=== PATIENT | female | born 1980 | race Caucasian/White ===

== ENCOUNTER 2019-01-13 01:24 | Outpatient (CLI) | payer MEDICAID, SELFPAY ==
--- NOTE | 2019-01-13 08:31 | DI.US_ITS ---
EXAM: US ABDOMEN CLINICAL HISTORY: RUQ ABD PAIN,R10.11.,BACK PAIN TECHNIQUE: Ultrasound performed using standard protocol. COMPARISON: No exams were available for comparison FINDINGS: The aorta and vena cava are unremarkable. There is some increased echogenicity in the liver consisten t with fatty infiltration. The portal vein is normal. Gallbladder is intact. There is no evidence o f cholelithiasis or biliary obstruction. There is no evidence of a Sanchez's sign. The head and body of the pancreas are unremarkable. Tail was not visualized. Spleen is intact. Right kidney and left kidney unremarkable. There is no evidence of abdominal free fluid. IMPRESSION: Findings consistent with a fatty liver.
== END 2019-01-13 01:44 ==
PROVIDERS: PCP Nurse Practitioner Family; Visit Provider Nurse Practitioner Family
DX: R10.11 Right upper quadrant pain (principal); M54.9 Dorsalgia, unspecified; K76.0 Fatty (change of) liver, not elsewhere classified
CPT/HCPCS: 76700

== ENCOUNTER 2019-02-23 14:46 | Outpatient (REF) | payer MEDICAID, SELFPAY ==
[2019-02-23 15:16] LABS: ALT 36 U/L (14-59); AST 10 U/L (15-37); Albumin 3.9 g/dL (3.4-5.0); Alkaline Phosphatase 95 U/L (46-116); Anion Gap 9.5 mmol/L (3-11); BUN 13 mg/dL (7-18); Bilirubin, Total 0.5 mg/dL (0.2-1.0); CO2 26.5 mmol/L (21.0-32.0); CREATININE 0.64 mg/dL (0.55-1.02); Calcium 8.6 mg/dL (8.5-10.1); Calculated LDL 120 mg/dL; Chloride 106 mmol/L (98-107); Cholesterol 181 mg/dL (<200); Glucose 82 mg/dL (74-106); HDL Cholesterol 44 mg/dL (40-60); Potassium 4.1 mmol/L (3.5-5.1); Sodium 142 mmol/L (136-145); TSH (W/Ref FT4) 0.81 uIU/mL (0.36-3.74); Triglyceride 85 mg/dL (<150)
== END 2019-02-23 15:06 ==
LOC: NCHCN 14:46
PROVIDERS: PCP Nurse Practitioner Family; Visit Provider Nurse Practitioner Family
DX: E03.9 Hypothyroidism, unspecified (principal); Z00.00 Encounter for general adult medical examination without abnormal findings
CPT/HCPCS: 80053; 80061; 84443

== ENCOUNTER 2020-06-20 16:34 | Outpatient (REF) | payer MEDICAID, SELFPAY ==
--- NOTE | 2020-06-20 15:30 | PAPFT_PTH ---
PATIENT: Malena Mustafa LOC: [facility] U#:[id number] AGE/SX: 40/F ROOM: RE06/20/[address]: Lili Zhu : 1980 BED: DIS: 06/20/2020 SPEC #: [id number] RECD: 06/20/20 17:51 STATUS: ANA REElias #: [id number] CARA: 06/20/20 15:[address]: Lili Zhu DEPT: [facility] Cytology RECD BY: Jane Tidwell Tissues: 1 - CX/ENDOCX FOR PAP SMEARS Procedures: PAP THIN PREP/UVM Screening Comments: [id number]
[2020-06-20 18:25] LABS: TSH (W/Ref FT4) 1.02 uIU/mL (0.36-3.74)
== END 2020-06-20 16:35 | disposition home or self-care (01) ==
LOC: NCHCN 16:34
PROVIDERS: PCP Nurse Practitioner Family; Visit Provider Nurse Practitioner Family
DX: E03.9 Hypothyroidism, unspecified (principal); Z12.4 Encounter for screening for malignant neoplasm of cervix
CPT/HCPCS: 88142; 84443

== ENCOUNTER 2020-10-24 16:57 | Outpatient (REF) | payer MEDICAID, SELFPAY ==
[2020-10-24 21:21] LABS: HCT 43.3 % (36.0-46.0); HGB 14.4 g/dL (11.2-15.7); MCH 31.2 pg (27.0-33.0); MCHC 33.3 % (32.0-36.0); MCV 93.9 fL (80-95); MPV 10.2 fL (8.0-11.0); Platelet Count 261 10^3/uL (130-400); RBC 4.61 10^6/uL (3.93-5.22); RDW 12.1 % (11.7-14.6); RDW-SD 42.2 fL; WBC 10.62 10^3/uL (4.4-10.8)
[2020-10-24 23:21] LABS: ALT 39 U/L (14-59); AST 20 U/L (15-37); Alkaline Phosphatase 110 U/L (46-116); Anion Gap 11.2 mmol/L (3-11); BUN 18 mg/dL (7-18); Bilirubin, Total 0.3 mg/dL (0.2-1.0); CO2 23.8 mmol/L (21.0-32.0); CREATININE 0.6 mg/dL (0.55-1.02); Chloride 106 mmol/L (98-107); Glucose 104 mg/dL (74-106); Magnesium 2.1 mg/dL (1.8-2.4); Sodium 141 mmol/L (136-145); TSH (W/Ref FT4) 0.89 uIU/mL (0.36-3.74); Total Protein 7.3 g/dL (6.4-8.2); Vitamin B12 499 pg/mL (193-986)
== END 2020-10-24 16:58 | disposition home or self-care (01) ==
LOC: LBN 16:57
PROVIDERS: PCP Nurse Practitioner Family; Visit Provider Nurse Practitioner Family
DX: N92.6 Irregular menstruation, unspecified (principal)
CPT/HCPCS: 80053; 85027; 82607; 83735; 84443

== ENCOUNTER 2021-06-28 02:04 | Outpatient (CLI) | payer MEDICAID, SELFPAY ==
--- NOTE | 2021-06-28 09:30 | DI.MAMMO_ITS ---
Exam(s) US BREAST RT COMPLETE MAMMO DIAGNOSTIC BI EXAM: MAMMO DIAGNOSTIC BI and U/S breast RT complete CLINICAL HISTORY: BREAST LUMP, N63.0. TECHNIQUE: Craniocaudal and mediolateral oblique Full Field Digital Mammography views with Computer Aided Diagnosis followed by Tomosynthesis and right breast ultrasound. COMPARISON: This is a baseline examination. FINDINGS: Mammography/Tomosynthesis: Masses/Architectural Distortion: There is a spiculated lesion with architectural distortion at the 12 o'clock position of the right breast. Microcalcifictions: No suspicious pleomorphic-type are seen. Skin Thickening/Nipple Retraction: None. Complete right breast US: Echotexture: Normal appearance of the glandular tissue. Shadowing: Please see below. Cyst: There is a collection of cysts seen at the 8 o'clock position of the right breast 2 cm from the nipple. Solid lesions: There is a 2.1 x 1.5 x 2.1 cm hypoechoic spiculated mass at the 12 o'clock position of the right breast 2-3 cm from the nipple. This corresponds to the mammographic abnormality. At the 9 o'clock position of the of the right breast 2 cm from the nipple there is a hypoechoic 0.8 cm mass which appears spiculated. There is a cystic and solid area at 1 o'clock position 1 cm from the nippl e. The areolar region is unremarkable. Normal sonographically benign-appearing lymph nodes are seen in the right axilla. Ductal dilation: None. IMPRESSION: 1. Spiculated 2.1 cm hypoechoic mass at 12 o'clock 3 cm from the nipple. Spiculated hypoechoic 0.8 c m mass 2 cm from the nipple at the 9 o'clock position. 2. Findings are suspicious for carcinoma and appear multifocal. 3. Findings were discussed with the patient and the patient's primary care physician on the date of t he examination. BI-RADS Category 5 - Highly Suggestive of Malignancy: Biopsy recommended Breast Density - Category C - Heterogeneously dense Breast density Category C or D implies that the patient has dense breast tissue. Dense breast tissue can make it harder to find cancer on a mammogram. Dense breast tissue is also associated with an incr eased risk of breast cancer. This information about the result of the mammogram report was provided to the patient to raise their awareness. Use this report when you speak with the patient about their risks for breast cancer, which includes their family history. At that time, you may recommend additional screening tests (Ultrasoun d or MRI) as these tests may add significant information. A negative radiographic report should not delay biopsy if a dominant or clinically suspicious mass is present. Up to ten percent of cancers are not identified on mammography. A negative report may reinforce clinical impression. Adenosis and dense breasts may obscure an underlying neoplasm. False positive reports average 6 to 10%. Patient will receive a letter notifying them of these results.
== END 2021-06-28 02:24 ==
PROVIDERS: PCP Nurse Practitioner Family; Visit Provider Nurse Practitioner Family
DX: N63.15 Unspecified lump in the right breast, overlapping quadrants (principal); R92.8 Other abnormal and inconclusive findings on diagnostic imaging of breast
CPT/HCPCS: 76642; 77062; 77066; G0279

== ENCOUNTER 2021-08-04 19:15 | Emergency (ER) | payer MEDICAID, SELFPAY ==
[2021-08-04 19:28] VITALS: BP 157/100; PULSE 89; RESP 16; TEMP 37.3; O2SAT 95
[2021-08-04 19:37] VITALS: BP 136/90
[2021-08-04 20:11] LABS: Abs Immature Grans 0.02 10^3/uL (0.0-0.06); Absolute Basophil Count 0.01 10^3/uL (0.0-0.2); Absolute Eosinophil Count 0.04 10^3/uL (0.0-0.7); Absolute Lymphocyte Count 1.12 10^3/uL (1.2-3.4); Absolute Monocyte Count 0.61 10^3/uL (0.1-0.8); Absolute Neutrophil Count 6.19 10^3/uL (1.2-6.7); Basophils % 0.1; Eosinophils % 0.5; HCT 44.2 % (36.0-46.0); HGB 14.4 g/dL (11.2-15.7); Immature Grans % 0.3; MCH 30.1 pg (27.0-33.0); MCHC 32.6 % (32.0-36.0); MCV 92 fL (80-95); MPV 9.3 fL (8.0-11.0); Monocytes % 7.6; Neutrophils % 77.5; Platelet Count 233 10^3/uL (130-400); RBC 4.79 10^6/uL (3.93-5.22); RDW 12.1 % (11.7-14.6); RDW-SD 41.3 fL; WBC 7.99 10^3/uL (4.4-10.8)
--- NOTE | 2021-08-04 20:14 | W.ED.GENAD ---
Discharge Plan Disposition Patient Disposition: HOME Condition: Stable Discharge Details Clinical Impression: COVID Primary Care Provider: Lili Zhu ED Provider: Brent Gonzales Home Meds and New Rx's Prescriptions: Continued multivitamin [Multi-Day] 1 EACH tablet 1 ea PO DAILY 0RF Discharge Instructions Instructions: COVID-19 (Coronavirus Disease 2019) (ED) Additional Instructions: you can take over the counter medications such as ibuprofen and tylenol, follow dosing instructions on bottle/packaging if you feel more ill, have worsening shortness of breath or persistent vomit return to the emergency department Medical Decision Making 41 yo female who recently was diagnosed with breast cancer, not on chemo but is scheduled for surgery on 08/24, comes in with chief complaint of nasal congestion and chills for a day, no fever. Took an at home covid test and was positive and wasn't sure what she should take so came here. She denies dyspnea, chest pain, vomit. She arrives appearing well and speaking in full sentences. She has clear lungs, no neck stiffness, no throat pain, no abdominal pain, stable vitals, no oxygen requirement. She had the J and J vaccine and a subsequent booster after this. Discussed with pt doing monocloncal antibody or paxlovid, and since she is not on chemo and is boostered chance of severe disease is low she decided she doesn't want any therapy. Labs were ordered prior to my seeing her, do not feel she needs to wait for these, will call her if she has any significant abnormalities on lab work. Differential Diagnosis Differential Diagnosis: covid, allergies HPI General Mode of arrival: ambulatory. Date/Time Provider Initiated Documentation: 08/04/21 19:33. Limitations to Documentation: no limitations. Information obtained by: patient. History of Present Illness 41 year old F presents to the emergency department with the chief complaint of nasal congestion, described as mild, Patient started experiencing this day(s) (1) and it has been constant. improves with No relieving factors improve symptom(s), No exacerbating factors reported . Patient notes cough. Patient did receive the following treatments prior to arrival, none Related Data Home Medications Medication Instructions Recorded Confirmed multivitamin (Multi-Day) 1 ea PO DAILY 05/13/13 08/04/21 Allergies Allergy/AdvReac Type Severity Reaction Status Date / Time No Known Drug Allergies Allergy Verified 04/30/22 19:32 General Stated Complaint: RespSymp YVES: 3 Review of Systems All systems reviewed & are unremarkable except as noted in HPI and below Constitutional Constitutional: Denies fever(s) and Denies weakness ENT Ears, Nose, Mouth, and Throat: Denies change in voice Cardiovascular Cardiovascular: Denies chest pain and Denies dyspnea Respiratory Respiratory: Denies dyspnea Gastrointestinal Gastrointestinal: Denies abdominal pain, Denies nausea and Denies vomiting Genitourinary Genitourinary: Denies dysuria Musculoskeletal Musculoskeletal: Denies joint swelling Neurologic Neurologic: Denies weakness PFSH All Active Problems (Updated 08/04/21 @ 20:14 by Brent Gonzales MD) Tobacco use (Acute 03/11/17) Contraception (Acute 03/07/16) COVID (Acute) Medical History (Updated 08/04/21 @ 20:14 by Brent Gonzales MD) Breast cancer Surgical History (Updated 01/21/18 @ 14:35 by [place]) section X 1 Social History (Updated 04/09/18 @ 14:58 by Sandie Boyd NP) Smoking/Tobacco Use Status: Current-Occasional Smoking risk assessment performed?: Yes Alcohol Intake: current Alcohol Intake frequency: holidays/special occasions only Drug use: Current Sobriety Substance use type: does not use and former substance user current occupation: [employer] Do you feel safe at home: Yes Do you feel safe in your relationship?: Yes Female Reproductive History Menstrual control method: pills History History 1 Para 1 Hx # Term Pregnancies Multiple births Hx # Pregnancies Ectopic pregnancies AB induced Hx Number of Living Children AB spontaneous Exam Const General: no acute distress Orientation: alert [facility] Head: normal to inspection Ears: external ears normal General nose exam: external nose normal Mouth: moist mucous membranes Eyes General: appearance normal, both eyes and all related structures Neck Neck: normal visual inspection Resp Effort & Inspection: normal respiratory effort and able to speak in complete sentences Cardio Rate: regular rate Skin General skin exam: no rashes or lesions noted Neuro General: patient alert and patient oriented x3 Extrem General: normal to inspection Psych Mental Status: mental status grossly normal Course Vital Signs Vital signs: Vital Signs Temperature 37.3 C 08/04/21 19:28 Pulse 89 08/04/21 19:28 Respiratory Rate 16 08/04/21 19:28 Blood Pressure 157/100 H 08/04/21 19:28 Pulse Oximetry 95 08/04/21 19:28 Temperature 37.3 C 08/04/21 19:28 Temperature Source Skin 08/04/21 19:28 Pulse 89 08/04/21 19:28 Respiratory Rate 16 08/04/21 19:28 Respiratory Effort Non-Labored 08/04/21 19:33 Blood Pressure 136/90 08/04/21 19:37 Pulse Oximetry 95 08/04/21 19:28 Pain Level 6 08/04/21 19:28 Lab/Test Results Lab/Test Results: Laboratory Tests Range/Units 08/04/21 19:50 WBC (4.4-10.8) 10^3/uL 7.99 RBC (3.93-5.22) 10^6/uL 4.79 Hgb (11.2-15.7) g/dL 14.4 Hct (36.0-46.0) % 44.2 MCV (80-95) fL 92 MCH (27.0-33.0) pg 30.1 MCHC (32.0-36.0) % 32.6 RDW (11.7-14.6) % 12.1 Plt Count (130-400) 10^3/uL 233 MPV (8.0-11.0) fL 9.3 Immature Gran % 0.3 Neutrophils % 77.5 Lymphocytes % 14.0 Monocytes % 7.6 Eosinophils % 0.5 Basophils % 0.1 Nucleated RBC % (0.0-0.3) % 0.0 Absolute Neutrophils (1.2-6.7) 10^3/uL 6.19 Absolute Lymphocytes (1.2-3.4) 10^3/uL 1.12 L Absolute Monocytes (0.1-0.8) 10^3/uL 0.61 Absolute Eosinophils (0.0-0.7) 10^3/uL 0.04 Absolute Basophils (0.0-0.2) 10^3/uL 0.01
[2021-08-04 20:24] LABS: ALT 28 U/L (14-59); AST 9 U/L (15-37); Albumin 3.8 g/dL (3.4-5.0); Alkaline Phosphatase 107 U/L (46-116); Anion Gap 7.6 mmol/L (3-11); BUN 8 mg/dL (7-18); Bilirubin, Total 0.3 mg/dL (0.2-1.0); CO2 26.4 mmol/L (21.0-32.0); CREATININE 0.6 mg/dL (0.55-1.02); Calcium 8.4 mg/dL (8.5-10.1); Chloride 103 mmol/L (98-107); Glucose 98 mg/dL (74-106); Potassium 4.1 mmol/L (3.5-5.1); Sodium 137 mmol/L (136-145); Total Protein 7.5 g/dL (6.4-8.2)
[2021-08-04 20:48] LABS: Influenza A PCR Negative (Negative); Influenza B PCR Negative (Negative); RSV PCR Negative (Negative)
[2021-08-04 21:00] LABS: COVID-19 PCR Positive (Negative)
== END 2021-08-04 20:45 | disposition home or self-care (01) ==
PROVIDERS: Physician Assistant; Emergency Provider Emergency Medicine; PCP Nurse Practitioner Family
DX: U07.1 COVID-19 (principal)
CPT/HCPCS: 80053; 87637; 99282; 85025

== ENCOUNTER 2021-10-02 07:45 | Outpatient (REF) | payer MEDICAID, SELFPAY ==
[2021-10-02 09:07] LABS: HCG Qual (Urine) Negative
== END 2021-10-02 07:46 | disposition home or self-care (01) ==
LOC: LBN 07:45
PROVIDERS: PCP Nurse Practitioner Family; Visit Provider Radiology Radiation Oncology
DX: C50.111 Malignant neoplasm of central portion of right female breast (principal); Z17.0 Estrogen receptor positive status [ER+]; Z32.00 Encounter for pregnancy test, result unknown
CPT/HCPCS: 81025

== ENCOUNTER 2021-10-03 09:31 | Emergency (ER) | payer MEDICAID, SELFPAY ==
--- NOTE | 2021-10-03 09:30 | RT.EKG_ITS ---
APPROVED REPORT Exam: Resting ECG Reason for Exam: possible stroke Patient Location: E HR:87 bpm ECG Measurements Heart Rate 87 AXIS VT 144 P 30 QRSd 84 QRS 5 QT 360 T 20 QTc 433 Conclusion Sinus rhythm...normal P axis, V-rate 60- 99
[2021-10-03 09:37] VITALS: BP 149/97; PULSE 87; RESP 16; TEMP 37.1; O2SAT 99
--- NOTE | 2021-10-03 09:45 | DI.CT_ITS ---
Exam(s) CT HEAD WO EXAM: CT HEAD WO CLINICAL HISTORY: Left sided numbness. TECHNIQUE: Imaging Protocol: Axial computed tomography images with coronal and sagittal reformatted images were created and reviewed COMPARISON: No exams were available for comparison FINDINGS: The ventricular system is normal in appearance. No evidence of acute intracranial hemorrhage, mass effect, or midline shift. The orbital structures are unremarkable. The temporal bone structures appear intact. Calvarium: Normal. Visualized Paranasal sinuses/Mastoids: Mucoperiosteal thickening and possible fluid noted in right ma xillary antrum which may represent acute and/or chronic sinusitis. Otherwise paranasal sinuses and m astoid air cells are clear as visualized.. IMPRESSION: No evidence of acute intracranial process. RADIATION DOSE DELIVERED: 724.38mGy.cm Total DLP 724.38mGy.cm Total DLP !Error CTDIvol DATA REPOSITORY: All CT scans at this facility are submitted to the National Radiology Data Registry (NRDR) Dose Index Registry (DIR) with the [employer] (ACR). RADIATION OPTIMIZATION: All CT scans at this facility use at least one of these dose optimization te chniques: automated exposure control; mA and/or kV adjustment per patient size (includes targeted exa ms where dose is matched to clinical indication); or iterative reconstruction.
[2021-10-03 09:53] VITALS: RESP 16
[2021-10-03 10:23] LABS: Abs Immature Grans 0.03 10^3/uL (0.0-0.06); Absolute Basophil Count 0.01 10^3/uL (0.0-0.2); Absolute Eosinophil Count 0.12 10^3/uL (0.0-0.7); Absolute Lymphocyte Count 1.86 10^3/uL (1.2-3.4); Absolute Monocyte Count 0.49 10^3/uL (0.1-0.8); Absolute Neutrophil Count 5.97 10^3/uL (1.2-6.7); Basophils % 0.1; Eosinophils % 1.4; HCT 40.9 % (36.0-46.0); HGB 13.6 g/dL (11.2-15.7); Immature Grans % 0.4; Lymphocytes % 21.9; MCH 30.2 pg (27.0-33.0); MCHC 33.3 % (32.0-36.0); MCV 91 fL (80-95); MPV 9.4 fL (8.0-11.0); Monocytes % 5.8; Neutrophils % 70.4; Platelet Count 237 10^3/uL (130-400); RDW 12.4 % (11.7-14.6); RDW-SD 41.3 fL; WBC 8.48 10^3/uL (4.4-10.8)
--- NOTE | 2021-10-03 10:31 | W.ED.GENAD ---
Discharge Plan Disposition Patient Disposition: HOME Condition: Stable Discharge Details Clinical Impression: Paresthesia Primary Care Provider: Lili Zhu ED Provider: John Boles Home Meds and New Rx's Prescriptions: New prednisone 50 mg tablet 50 mg PO DAILY Qty: 3 0RF No Action multivitamin [Multi-Day] 1 EACH tablet 1 ea PO DAILY cholecalciferol (vitamin D3) [Vitamin D3] 10 mcg (400 unit) Capsule 400 unit PO DAILY Discharge Instructions Instructions: Paresthesia (ED) Additional Instructions: At this time there are no worrisome findings to correlate with your symptoms. We are still pending on Lyme testing and we will contact you if you need antibiotics for further treatment of this. If you have any new or significant worsening of symptoms return immediately to the emergency department for reassessment. We will attempt a short steroid burst to see if this helps with your symptoms and otherwise if not improving follow-up with your primary care provider for reassessment. Referrals: Lili Zhu [Primary Care Provider] - 1 week Discharge Data Discharge Date/Time-TO BE ENTERED AT DEPARTURE: 10/03/21 13:29 Medical Decision Making Patient presenting to the emergency department chief complaint of paresthesia to the left jaw along with bilateral legs from the calf down. Patient states symptoms started approximately 1 week ago then somewhat resolved and now have returned patient has pertinent past medical history of recent diagnosis of breast cancer with biopsy and lymph node removal approximately 2 weeks ago, did have COVID a couple weeks ago and fully recovered, does have some anxiety. Physical exam is overall unremarkable and no focal motor deficits, denies headache,. Exam is unremarkable except for perceived paresthesia but not full loss of sensation to left side of V3 only and some paresthesia to the circumferential lower legs from the calf down with reported slightly worse on left than right but again denies pain discomfort swelling and no other tenderness can be appreciated on lower extremity examination. Cardiac and respiratory exam are unremarkable. Given patient's history of breast cancer with recent surgery we will plan on checking basic labs and CT imaging. While CVA/TIA is on differential list her pattern of complaint does not fully fit the typical pattern. Other considerations are MS, brain metastasis, tickborne illness/Lyme disease. Reviewed screening labs which are unremarkable CBC, CMP showing slightly low creatinine and AST otherwise unremarkable CMP. Patient still pending urinalysis and tick panel. Reviewed CT scan with radiologist that shows some maxillary sinus disease otherwise no acute findings noted. We will proceed with MR imaging of the brain. Review of MRI imaging of the brain is unremarkable. Patient patient reassessed and actually states some improvement of the facial symptoms but still has some sensation of numbness to the lower extremities. All work-up and findings are not consistent with stroke or CVA, unknown cause for paresthesia. Patient states that she recently had surgery and did have some discomfort after positioning from surgery and questions pinched nerve I feel this is a low likelihood but we will try a prednisone daily burst for 3 days to see if this helps any patient's symptoms. Otherwise patient to follow-up with primary care provider for reassessment. After discussion of diagnosis and plan of care patient has no further needs, questions, or concerns and states clear understanding to return to the emergency department for any worsening symptoms. This documentation was generated using [employer] system, please disregard any oddities of phrase or misspellings. Imaging Data Radiologic Study: Imaging: MRI Radiologist's impression: FINDINGS: Brain MRI The ventricular system is normal in appearance. No signal abnormality identified in the brain. The orbital and temporal bone structures appear intact as does the pituitary. Diffusion weighted imaging shows no evidence of infarction. Susceptibility weighted imaging shows no evidence of intracranial hemorrhage. There is normal flow void in the [place] vasculature. Note is made of fluid and mixed signal opacification of right maxillary antrum consistent with acute and/or chronic sinusitis. IMPRESSION: No evidence of acute intracranial process. HPI General Mode of arrival: ambulatory. Date/Time Provider Initiated Documentation: 10/03/21 09:32. Limitations to Documentation: no limitations. Information obtained by: patient and RN notes reviewed. History of Present Illness 41 year old F presents to the emergency department with the chief complaint of Left facial numbness and bilateral leg numbness, Quality is described as other (denies pain), and is localized to the face and lower extremity. Patient reports no radiation. Patient started experiencing this week(s) (1) and it has been intermittent. No relieving factors improve symptom(s), No exacerbating factors reported . Patient notes no other symptoms.. Patient did receive the following treatments prior to arrival, none Related Data Home Medications Medication Instructions Recorded Confirmed multivitamin (Multi-Day tablet) 1 ea PO DAILY 05/13/13 10/03/21 cholecalciferol (vitamin D3) 10 400 unit PO DAILY 10/03/21 10/03/21 mcg (400 unit) capsule (Vitamin D3) prednisone 50 mg tablet 50 mg PO DAILY #3 tabs 10/03/21 Previous Rx's Medication Instructions Recorded prednisone 50 mg tablet 50 mg PO DAILY #3 tabs 10/03/21 Allergies Allergy/AdvReac Type Severity Reaction Status Date / Time No Known Drug Allergies Allergy Verified 10/03/21 09:44 General Stated Complaint: GenMedical YVES: 3 Review of Systems Constitutional Constitutional: Denies body ache(s), Denies chills, Denies fatigue, Denies fever(s), Denies headache(s) and Denies weakness Eyes Eyes: Denies change in vision and Denies irritation ENT Ears, Nose, Mouth, and Throat: Denies dysphagia, Denies dizziness, Denies headache(s), Denies neck pain and Denies disequilibrium Cardiovascular Cardiovascular: Denies chest pain, Denies syncope and Denies dyspnea Respiratory Respiratory: Denies dyspnea Gastrointestinal Gastrointestinal: Denies dysphagia, Denies nausea and Denies vomiting Musculoskeletal Musculoskeletal: Denies abnormal gait, Reports back pain (chronic), Denies neck pain and Reports numbness Integumentary/Breasts Skin/Breast: Denies rash and Denies skin pain Neurologic Neurologic: Reports as per HPI, Denies abnormal gait, Denies dizziness, Denies syncope, Denies headache(s), Denies lack of coordination, Denies localized weakness, Reports numbness, Reports sensory deficit, Denies disequilibrium and Denies weakness Psychiatric Psychiatric: Reports anxiety Endocrine Endocrine: Denies fatigue PFSH All Active Problems (Updated 10/03/21 @ 13:07 by John Boles NP) Tobacco use (Acute 03/11/17) Contraception (Acute 03/07/16) COVID (Acute) Paresthesia (Acute) Medical History Breast cancer Surgical History section X 1 Social History Smoking/Tobacco Use Status: Former Tobacco Use Smoking risk assessment performed?: Yes Alcohol Intake: former Drug use: Current Sobriety Substance use type: does not use and former substance user current occupation: [employer] Do you feel safe at home: Yes Do you feel safe in your relationship?: Yes Female Reproductive History Menstrual control method: pills History History 1 Para 1 Hx # Term Pregnancies Multiple births Hx # Pregnancies Ectopic pregnancies AB induced Hx Number of Living Children AB spontaneous Exam Const General: cooperative, healthy appearing, no acute distress and well groomed Orientation: alert, awake and oriented x3 HENMT Head: normal to inspection Ears: hearing grossly normal bilaterally and TM's normal bilaterally Mouth: oral mucosae normal and moist mucous membranes Throat: posterior oropharynx normal Eyes Visual Juarez: normal visual juarez by confrontation Alignment and Position: alignment normal Periorbital: periorbital findings normal Eyelids: eyelids normal Sclera: sclerae normal Cornea: corneas normal Pupils: PERRL EOM: EOM intact bilaterally Neck Neck: normal visual inspection, full ROM and no meningeal signs Resp Effort & Inspection: normal respiratory effort and able to speak in complete sentences Auscultation: clear to auscultation bilaterally Cardio Rate: regular rate Rhythm: regular rhythm Heart Sounds: S1 normal and S2 normal Neuro General: patient alert, patient awake, patient oriented x3, gait normal, tone normal, moves all extremities, no focal motor deficits and not confused Cranial Nerves: sense of smell intact, PERRL, accommodation normal, EOM intact bilaterally, no nystagmus, facial strength normal, tongue midline, gag reflex normal, hearing normal, able to rotate head bilaterally, able to elevate shoulders bilaterally and individual cranial nerve findings V: normal (V3 decreased sensation) Cognition: normal cognition Speech: speech normal Motor: muscle tone normal throughout, strength 5/5 throughout, no pronator drift, no movement abnormalities noted and no fasciculations Sensory Exam: lower extremity (Bilateral decreased sensation from the knee down) Coordination: [id number] test normal, Does not sway with eyes open, rapid alternating movement UE normal and rapid alternating movement LE normal Course Vital Signs Vital signs: Vital Signs Temperature 37.1 C 10/03/21 09:37 Pulse 87 10/03/21 09:37 Respiratory Rate 16 10/03/21 09:37 Blood Pressure 149/97 H 10/03/21 09:37 Pulse Oximetry 99 10/03/21 09:37 Temperature 37.1 C 10/03/21 09:37 Temperature Source Temporal Artery Scan 10/03/21 09:37 Pulse 87 10/03/21 09:37 Respiratory Rate 16 10/03/21 09:53 Respiratory Effort 10/03/21 09:53 Respiratory Depth Normal 10/03/21 09:53 Respiratory Pattern Normal 10/03/21 09:53 Blood Pressure 149/97 H 10/03/21 09:37 Blood Pressure Position Supine 10/03/21 09:37 Pulse Oximetry 99 10/03/21 09:37 Oxygen Delivery Method Room Air 10/03/21 09:37 Oxygen Flow Rate 0 10/03/21 09:37 Pain Level 1 10/03/21 09:37 Lab/Test Results Lab/Test Results: Laboratory Tests Range/Units 10/03/21 10:10 WBC (4.4-10.8) 10^3/uL 8.48 RBC (3.93-5.22) 10^6/uL 4.50 Hgb (11.2-15.7) g/dL 13.6 Hct (36.0-46.0) % 40.9 MCV (80-95) fL 91 MCH (27.0-33.0) pg 30.2 MCHC (32.0-36.0) % 33.3 RDW (11.7-14.6) % 12.4 Plt Count (130-400) 10^3/uL 237 MPV (8.0-11.0) fL 9.4 Immature Gran % 0.4 Neutrophils % 70.4 Lymphocytes % 21.9 Monocytes % 5.8 Eosinophils % 1.4 Basophils % 0.1 Nucleated RBC % (0.0-0.3) % 0.0 Absolute Neutrophils (1.2-6.7) 10^3/uL 5.97 Absolute Lymphocytes (1.2-3.4) 10^3/uL 1.86 Absolute Monocytes (0.1-0.8) 10^3/uL 0.49 Absolute Eosinophils (0.0-0.7) 10^3/uL 0.12 Absolute Basophils (0.0-0.2) 10^3/uL 0.01
[2021-10-03 10:39] LABS: ALT 37 U/L (14-59); AST 13 U/L (15-37); Albumin 3.7 g/dL (3.4-5.0); Alkaline Phosphatase 114 U/L (46-116); Anion Gap 5.6 mmol/L (3-11); BUN 7 mg/dL (7-18); Bilirubin, Total 0.6 mg/dL (0.2-1.0); CO2 27.4 mmol/L (21.0-32.0); CREATININE 0.5 mg/dL (0.55-1.02); Calcium 8.7 mg/dL (8.5-10.1); Chloride 104 mmol/L (98-107); Glucose 95 mg/dL (74-106); Magnesium 1.8 mg/dL (1.8-2.4); Potassium 3.8 mmol/L (3.5-5.1); Sodium 137 mmol/L (136-145); Total Protein 7.4 g/dL (6.4-8.2)
--- NOTE | 2021-10-03 11:15 | DI.MRI_ITS ---
Exam(s) MR BRAIN WO EXAM: MR BRAIN WO CLINICAL HISTORY: numbness TECHNIQUE: Multiplanar multisequence MRI of the brain was performed. COMPARISON: No exams were available for comparison FINDINGS: The ventricular system is normal in appearance. No signal abnormality identified in the brain. The orbital and temporal bone structures appear intact as does the pituitary. Diffusion weighted imaging shows no evidence of infarction. Susceptibility weighted imaging shows no evidence of intracranial hemorrhage. There is normal flow void in the [place] vasculature. Note is made of fluid and mixed signal opacification of right maxillary antrum consistent with acute and/or chronic sinusitis. IMPRESSION: No evidence of acute intracranial process. DATA REPOSITORY:
[2021-10-03 13:17] VITALS: BP 131/88; PULSE 64; TEMP 36.3; O2SAT 97
[2021-10-04 10:39] LABS: Lyme Ab w Rflx to Lyme Confirm Positive (Negative)
[2021-10-04 12:07] LABS: Lyme IgG Ab Negative (Negative); Lyme IgM Ab Positive (Negative)
[2021-10-05 22:19] LABS: Anaplasma phagocytophilum Negative (Negative); B. miyamotoi PCR Negative (Negative); Babesia divergens/MO-1 Negative (Negative); Babesia duncani Negative (Negative); Babesia microti Negative (Negative); Ehrlichia chaffeensis Negative (Negative); Ehrlichia ewingii/canis Negative (Negative); Ehrlichia muris eauclairensis Negative (Negative)
== END 2021-10-03 13:29 | disposition home or self-care (01) ==
PROVIDERS: Emergency Provider Nurse Practitioner Family; PCP Nurse Practitioner Family
DX: R20.0 Anesthesia of skin (principal); Z98.890 Other specified postprocedural states
CPT/HCPCS: 36415; 36416; 80053; 82962; 86617; 87798; 93005; 99283; 70450; 70551; 81003; 83735; 85025; 86618; 93010

== ENCOUNTER 2021-11-17 21:59 | Emergency (ER) | payer MEDICAID, SELFPAY ==
[2021-11-17] VITALS (18 sets, daily range): BP systolic 96–138; BP diastolic 66–93; PULSE 87–101; RESP 12–23; TEMP 36.4; O2SAT 95–99
--- NOTE | 2021-11-17 22:00 | RT.EKG_ITS ---
APPROVED REPORT Exam: Resting ECG Reason for Exam: chest pressure Patient Location: E HR:99 bpm ECG Measurements Heart Rate 99 AXIS MA 153 P 21 QRSd 83 QRS 5 QT 341 T 3 QTc 439 Conclusion Sinus rhythm...normal P axis, V-rate 60- 99 Physician: no stemi, no significant st elevaion or depression, inverted present in III
--- NOTE | 2021-11-17 22:15 | DI.CT_ITS ---
Exam(s) CT CHEST PE CTA EXAM: CT CHEST PE CTA CLINICAL HISTORY: cancer, on chemo, chest pain ,sob, r/o pe. TECHNIQUE: Imaging Protocol: Axial CT angiography was performed with multi-slice acquisition and mu lti-planar reconstructions as well as axial, coronal and sagittal MIP reconstructions. CONTRAST MATERIAL: Intravenous: Omnipaque 350 Contrast volume:82 ml COMPARISON: No exams were available for comparison FINDINGS: Pulmonary Arteries: No evidence of filling defect to suggest pulmonary emboli. Tracheobronchial tree: Patent where visualized. Mediastinum and Carmen: No dominant adenopathy or fluid collection. Pulmonary parenchyma: No consolidation or dominant measurable mass. Pleura: No effusion or pneumothorax. Heart: The heart is not dilated. No coronary artery calcifications are seen. Aorta: Thoracic aorta non-dilated. No aneurysm. No dissection. Upper abdomen: Unremarkable. Bones: Bilateral upper rib deformities. No lytic or blastic lesions.. Tubes, Catheters, and Lines: Port over left upper chest. Tip in right atrium. IMPRESSION: No evidence of pulmonary embolism or other acute abnormality.. RADIATION DOSE DELIVERED: 431.79mGy.cm Total DLP DATA REPOSITORY: All CT scans at this facility are submitted to the National Radiology Data Registry (NRDR) Dose Index Registry (DIR) with the [employer] (A[employer]). RADIATION OPTIMIZATION: All CT scans at this facility use at least one of these dose optimization te chniques: automated exposure control; mA and/or kV adjustment per patient size (includes targeted exa ms where dose is matched to clinical indication); or iterative reconstruction.
[2021-11-17 22:37] LABS: Abs Immature Grans 0.27 10^3/uL (0.0-0.06); HCT 38.4 % (36.0-46.0); MCHC 33.9 % (32.0-36.0); MCV 89 fL (80-95); MPV 10.4 fL (8.0-11.0); Platelet Count 129 10^3/uL (130-400); RBC 4.33 10^6/uL (3.93-5.22); RDW 11.9 % (11.7-14.6); RDW-SD 38.5 fL; WBC 4.92 10^3/uL (4.4-10.8)
[2021-11-17] MEDS: Omnipaque 350 MG/ML 100 ML BTL IJ (22:38)
[2021-11-17 22:48] LABS: PTT Activated 28.6 sec (21.0-27.5); Prothrombin Time 9.9 sec (9.3-11.0)
[2021-11-17 22:51] LABS: Absolute Neutrophil Count 2.31 10^3/uL (1.2-6.7)
[2021-11-17] MEDS: MORPHine 4 MG/ML SYR (22:51)
[2021-11-17 22:52] LABS: Absolute Eosinophil Count 0.05 10^3/uL (0.0-0.7); Absolute Lymphocyte Count 1.77 10^3/uL (1.2-3.4); Absolute Monocyte Count 0.64 10^3/uL (0.1-0.8); Atypical Lymphocytes % 3; Diff Comment Manual Differential; Metamyelocytes % 1; Myelocytes % 2; RBC Morphology Normal
[2021-11-17 22:58] LABS: ALT 35 U/L (14-59); AST 14 U/L (15-37); Albumin 3.3 g/dL (3.4-5.0); Alkaline Phosphatase 127 U/L (46-116); Anion Gap 10.2 mmol/L (3-11); BUN 10 mg/dL (7-18); Bilirubin, Total 0.6 mg/dL (0.2-1.0); CO2 27.8 mmol/L (21.0-32.0); CREATININE 0.5 mg/dL (0.55-1.02); Calcium 8.5 mg/dL (8.5-10.1); Chloride 103 mmol/L (98-107); Glucose 97 mg/dL (74-106); NT-proBNP 28 pg/mL (<300); Potassium 3.4 mmol/L (3.5-5.1); Sodium 141 mmol/L (136-145); Total Protein 6.8 g/dL (6.4-8.2); Troponin I < 50 ng/L (<or=60)
--- NOTE | 2021-11-17 23:25 | DI.VRAD_ITS ---
PROCEDURE INFORMATION: Exam: CTA Chest With Contrast Exam date and time: 11/17/2021 10:34 PM Age: 41 years old Clinical indication: Shortness of breath; Other: Unspecified; Patient HX: Cancer, on chemo; Chest pain, SOB; Additional info: R/O pe TECHNIQUE: Imaging protocol: Computed tomographic angiography of the chest with contrast. 3D rendering (Not supervised by radiologist): MIP and/or 3D reconstructed images were created by the technologist. COMPARISON: No relevant prior studies available. FINDINGS: Pulmonary arteries: No filling defects within the pulmonary arteries are identified to suggest pulmonary embolism. Aorta: Unremarkable. No aortic aneurysm. No aortic dissection. Lungs: There are a few scattered regions of mild pulmonary parenchymal scarring/atelectasis. Lungs otherwise clear. Pleural spaces: There are no pleural effusions present. There is no evidence of pneumothorax. Heart: Heart size is normal. There is no pericardial effusion. Lymph nodes: There is no evidence of lymphadenopathy. Diaphragm: There is a tiny sliding hiatal hernia. 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 No acute fractures are identified. Soft tissues: Unremarkable. IMPRESSION: 1. No pulmonary embolism identified. 2. No active cardiopulmonary disease identified. Dictated and Authenticated by: Linwood Smart MD. Ordering:ESSENCE Ortiz MD
[2021-11-17] MEDS: Normal Saline 1,000 ML 1000 ML IV (23:58)
[2021-11-18] VITALS (20 sets, daily range): BP systolic 107–124; BP diastolic 61–73; PULSE 81–97; RESP 14–25; O2SAT 97–99
--- NOTE | 2021-11-18 00:45 | RT.EKG_ITS ---
APPROVED REPORT Exam: Resting ECG Reason for Exam: chest pain Patient Location: E HR:87 bpm ECG Measurements Heart Rate 87 AXIS KS 156 P 17 QRSd 83 QRS 8 QT 359 T 3 QTc 433 Conclusion Sinus rhythm...normal P axis, V-rate 60- 99 Physician: no stemi, stable, no significant st elevation or depression
--- NOTE | 2021-11-18 00:46 | ED.GENADUL_ITS ---
Discharge Plan Disposition Patient Disposition: HOME Condition: Good Discharge Details Chief Complaint: Chest Pain Clinical Impression: Chest pain Primary Care Provider: Lili Zhu ED Provider: Angel Meneses Home Meds and New Rx's Prescriptions: No Action multivitamin [Multi-Day] 1 EACH tablet 1 ea PO DAILY prochlorperazine maleate 10 mg tablet 1 tab PO Q6H PRN PRN Label Comments: TAKE 1 TABLET BY MOUTH EVERY 6 HOURS NEEDED FOR NAUSEA lorazepam 0.5 mg tablet 1 tab PO Q6H PRN PRN Discharge Instructions Instructions: Chest Pain (ED) Additional Instructions: At this at this time your work-up has returned very reassuring. Your laboratory work-up and EKG showed no signs of heart attack. Your symptoms may have been caused by reflux or muscular irritation. Please avoid any more tomato products, or spicy foods. Please follow-up with your oncologist closely. If you notice any worsening of your symptoms, or any new symptoms such as vomiting, diarrhea, fever, chills, shortness of breath, chest pain, numbness, weakness, or fainting , please return immediately to the emergency department for reevaluation. Please follow up with your primary care provider as soon as possible for reassessment and reevaluation. As always, it was a pleasure participating in your medical care today. Referrals: Lili Zhu [Primary Care Provider] - Medical Decision Making 41-year-old female with a past medical history of recent diagnosis of breast cancer, and current active chemotherapy treatment, who presents today for evaluation of chest pain. Patient states that at about 7:30 PM, few hours prior to arrival, she developed a generalized chest achiness/heaviness. Symptoms were nonexertional. It is made worse with deep inspiration. Improved by nothing. It was nonpositional. She does have a left-sided port. She denies any history of this in the past. She denies any cardiac disease or current tobacco use. She denies any recent long surgeries or procedures aside for having a port placed in August. She denies any family history of blood clots. She denies any tearing or ripping sensation. No fever or chills. No other complaints at this time Physical exam demonstrates a well-appearing female. EKG shows no evidence of STEMI. No calf tenderness. Bedside limited echo demonstrates no abnormal dilatation of the right ventricle. Left ventricle demonstrates normal ejection fraction. Differential is high for pulmonary embolism, ACS notably less likely. No evidence of pericardial effusion on bedside ultrasound, pericarditis is of concern but also less likely. Pneumonia or pneumothorax is also of concern. We will get a CTA of the lung secondary to her high risk factors for PE, treat the patient's pain, monitor closely and reassess. Musculoskeletal component is certainly a potential as well, but I feel that the other concerning etiologies need to be evaluated first. Screening EKG shows no evidence of STEMI or significant ST elevations or depressions. 2:09 AM Laboratory work-up is returned unremarkable, initial troponin and delta troponin are normal. Initial EKG and repeat EKG are stable. No evidence of STEMI. Patient continues to have severe chest pain whatsoever, she feels well and is actively requesting to go home. Patient does now admit to having notable tomato based products this evening and is concerned that this may have been a bit of reflux although she feels great now. At this time symptoms are clinically inconsistent with ACS or STEMI. CTA has returned and shows no evidence of pulmonary embolism or significant abnormality. Patient's heart score is in the low risk category. Symptoms inconsistent with dissection. Patient will be discharged. Discussed red flags for which to return. Reflux and musculoskeletal component are certainly highest on the differential now. No evidence of acute life-threatening etiology at this time. I have extensively reviewed the treatment plan and discharge instructions with the patient and their family. I have addressed all patient concerns at this time. The patient and family was made aware of what symptoms to monitor for that would warrant a return to the emergency department. Discussed the plan with the patient and family, they demonstrate verbal understanding and agreement with our assessment and plan at this time. The documentation in this chart was dictated using [employer] dictation software. Please excuse any dictation errors. FINDINGS: Pulmonary arteries: No filling defects within the pulmonary arteries are identified to suggest pulmonary embolism. Aorta: Unremarkable. No aortic aneurysm. No aortic dissection. Lungs: There are a few scattered regions of mild pulmonary parenchymal scarring/atelectasis. Lungs otherwise clear. Pleural spaces: There are no pleural effusions present. There is no evidence of pneumothorax. Heart: Heart size is normal. There is no pericardial effusion. Lymph nodes: There is no evidence of lymphadenopathy. Diaphragm: There is a tiny sliding hiatal hernia. 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 No acute fractures are identified. Soft tissues: Unremarkable. IMPRESSION: 1. No pulmonary embolism identified. 2. No active cardiopulmonary disease identified. Thank you for allowing us to participate in the care of your patient. Dictated and Authenticated by: Linwood Smart MD 11/17/2021 11:24 PM Eastern Time ([place] & [place]) HPI General Date/Time Provider Initiated Documentation: 11/17/21 22:14 . HPI Narrative: 41-year-old female with a past medical history of recent diagnosis of breast cancer, and current active chemotherapy treatment, who presents today for evaluation of chest pain. Patient states that at about 7:30 PM, few hours prior to arrival, she developed a generalized chest achiness/heaviness. Symptoms were nonexertional. It is made worse with deep inspiration. Improved by nothing. It was nonpositional. She does have a left-sided port. She denies any history of this in the past. She denies any cardiac disease or current tobacco use. She denies any recent long surgeries or procedures aside for having a port placed in August. She denies any family history of blood clots. She denies any tearing or ripping sensation. No fever or chills. No other complaints at this time Related Data Home Medications Medication Instructions Recorded Confirmed multivitamin (Multi-Day tablet) 1 ea PO DAILY 05/13/13 11/17/21 lorazepam 0.5 mg tablet 1 tab PO Q6H PRN PRN 11/17/21 11/17/21 prochlorperazine maleate 10 mg 1 tab PO Q6H PRN PRN 11/17/21 11/17/21 tablet Allergies Allergy/AdvReac Type Severity Reaction Status Date / Time No Known Drug Allergies Allergy Verified 11/17/21 22:09 General Stated Complaint: Chest Pain YVES: 2 Review of Systems All systems reviewed & are unremarkable except as noted in HPI and below PFSH All Active Problems (Updated 11/18/21 @ 02:04 by Angel Meneses DO) Tobacco use (Acute 03/11/17) Contraception (Acute 03/07/16) COVID (Acute) Chest pain (Acute) Medical History Breast cancer Surgical History section X 1 Social History Smoking/Tobacco Use Status: Former Tobacco Use Smoking risk assessment performed?: Yes Alcohol Intake: former Drug use: Current Sobriety Substance use type: does not use and former substance user current occupation: [employer] Do you feel safe at home: Yes Do you feel safe in your relationship?: Yes Female Reproductive History Menstrual control method: pills History History 1 Para 1 Hx # Term Pregnancies Multiple births Hx # Pregnancies Ectopic pregnancies AB induced Hx Number of Living Children AB spontaneous Exam Narrative Exam Narrative: 1.Const: Well-nourished, Well-developed, appearing stated age 2.Eyes: PERRL, no conjunctival injection, and symmetrical lids. 3.ENT: Atraumatic external nose and ears. Moist MM. Neck: Symmetric, trachea midline, No thyromegaly. 4.CVS: +S1/S2, No murmurs or gallops. Peripheral pulses 2+ and equal in all extremities. Brisk capillary refill in all extremities. 5.RESP: Unlabored respiratory effort. Clear to auscultation bilaterally. No wheezes rales or rhonchi 6.GI: Soft, Nontender/Nondistended, No hepatosplenomegaly. No guarding or rebound. 7.MSK: Normocephalic/Atraumatic, Extremities w/o deformity or ttp No cyanosis or clubbing, Normal movement of all extremities, no calf tenderness. 8.Skin: Warm, Dry. No rashes or lesions. 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 Sensation grossly intact, no focal neurologic deficits. 10.Psych: (AAO) x3. Appropriate mood and affect Course Vital Signs Vital signs: Vital Signs Temperature 36.4 C L 11/17/21 22:04 Pulse 101 H 11/17/21 22:04 Respiratory Rate 16 11/17/21 22:04 Blood Pressure 138/84 11/17/21 22:04 Pulse Oximetry 96 11/17/21 22:04 Temperature 36.4 C L 11/17/21 22:04 Temperature Source Skin 11/17/21 22:04 Pulse 93 H 11/17/21 23:01 Pulse 87 11/17/21 23:10 Respiratory Rate 18 11/17/21 23:10 Respiratory Effort Non-Labored 11/17/21 22:13 Respiratory Pattern Normal 11/17/21 22:13 Blood Pressure 121/73 11/17/21 23:01 Blood Pressure Mean 85 11/17/21 23:01 Pulse Oximetry 98 11/17/21 23:10 Pain Level 2 11/17/21 22:51 Lab/Test Results Lab/Test Results: Laboratory Tests Range/Units 11/17/21 11/17/21 11/17/21 22:21 22:21 22:21 WBC (4.4-10.8) 10^3/uL 4.92 RBC (3.93-5.22) 10^6/uL 4.33 Hgb (11.2-15.7) g/dL 13.0 Hct (36.0-46.0) % 38.4 MCV (80-95) fL 89 MCH (27.0-33.0) pg 30.0 MCHC (32.0-36.0) % 33.9 RDW (11.7-14.6) % 11.9 Plt Count (130-400) 10^3/uL 129 L MPV (8.0-11.0) fL 10.4 Immature Gran % 0.0 Neutrophils % 47.0 Lymphocytes % 33.0 Atypical Lymphs % 3 Monocytes % 13.0 Eosinophils % 1.0 Basophils % 0.0 Metamyelocytes % 1 Myelocytes % 2 Nucleated RBC % (0.0-0.3) % 0.0 Absolute Neutrophils (1.2-6.7) 10^3/uL 2.31 Absolute Lymphocytes (1.2-3.4) 10^3/uL 1.77 Absolute Monocytes (0.1-0.8) 10^3/uL 0.64 Absolute Eosinophils (0.0-0.7) 10^3/uL 0.05 Absolute Basophils (0.0-0.2) 10^3/uL 0.00 RBC Morphology Normal PT (9.3-11.0) sec 9.9 INR (0.9-1.1) 1.0 APTT (21.0-27.5) sec 28.6 H Sodium (136-145) mmol/L 141 Potassium (3.5-5.1) mmol/L 3.4 L Chloride (98-107) mmol/L 103 Carbon Dioxide (21.0-32.0) mmol/L 27.8 Anion Gap (3-11) mmol/L 10.2 BUN (7-18) mg/dL 10 Creatinine (0.55-1.02) mg/dL 0.5 L Estimated GFR/1.73 m2 (mL/min/1.73m2) >= 60.00 Glucose (74-106) mg/dL 97 Calcium (8.5-10.1) mg/dL 8.5 Total Bilirubin (0.2-1.0) mg/dL 0.6 AST (15-37) U/L 14 L ALT (14-59) U/L 35 Alkaline Phosphatase (46-116) U/L 127 H Troponin I (<or=60) ng/L < 50 NT-Pro-B Natriuret Pep (<300) pg/mL 28 Total Protein (6.4-8.2) g/dL 6.8 Albumin (3.4-5.0) g/dL 3.3 L
[2021-11-18 01:51] LABS: Troponin I < 50 ng/L (<or=60)
== END 2021-11-18 02:22 | disposition home or self-care (01) ==
PROVIDERS: Emergency Provider Student in an Organized Health Care Education/Training Program; PCP Nurse Practitioner Family
DX: R07.9 Chest pain, unspecified (principal); R06.02 Shortness of breath; Z79.899 Other long term (current) drug therapy; C50.919 Malignant neoplasm of unspecified site of unspecified female breast
CPT/HCPCS: 71275; 80053; 93005; 96361; 96374; 83880; 84484; 85025; 85610; 85730; 93010; 99284; 99285; J2270; J3490

== ENCOUNTER 2022-07-18 00:52 | Outpatient (CLI) | payer MEDICAID, SELFPAY ==
--- NOTE | 2022-07-18 14:45 | DI.DEXA_ITS ---
Exam(s) XR DEXA BONE DENSITY W/WO REYMUNDO EXAM: XR DEXA BONE DENSITY W/WO REYMUNDO CLINICAL HISTORY: H/O RT BREAST CA, C50.911, Z17.0, TO START ON HORMONAL THERAPY TECHNIQUE: [employer] Horizon C densitometer analysis of left hip, lumbar spine and left forearm. Lat eral survey image of the thoracic and lumbar spine. COMPARISON: No exams were available for comparison FINDINGS: Lateral view of the thoracic and lumbar spine shows no evidence of compression fractures. Bone mineral density measurements of the lumbar spine correspond to a total T-score of 0, in the nor mal range. Bone mineral density measurements of the left hip correspond to a total T-score of 0.1. The femoral neck T-score is -0.3, in the normal range.. The left forearm bone mineral density measurements correspond to a T-score of the distal 3rd of -0.2 , in the normal range.. IMPRESSION: Normal bone mineral density.
== END 2022-07-18 01:12 ==
LOC: DI 00:52
PROVIDERS: PCP Nurse Practitioner Family; Visit Provider Internal Medicine Medical Oncology
DX: C50.911 Malignant neoplasm of unspecified site of right female breast (principal); Z17.0 Estrogen receptor positive status [ER+]
CPT/HCPCS: 77080

== ENCOUNTER 2023-07-15 15:50 | Outpatient (REF) | payer SELFPAY ==
[2023-07-15 18:56] LABS: Abs Immature Grans 0.02 10^3/uL (0.0-0.06); Absolute Basophil Count 0.01 10^3/uL (0.0-0.2); Absolute Eosinophil Count 0.13 10^3/uL (0.0-0.7); Absolute Lymphocyte Count 2.33 10^3/uL (1.2-3.4); Absolute Monocyte Count 0.42 10^3/uL (0.1-0.8); Absolute Neutrophil Count 4.64 10^3/uL (1.2-6.7); Basophils % 0.1; Eosinophils % 1.7; HCT 40.4 % (36.0-46.0); HGB 13.5 g/dL (11.2-15.7); Immature Grans % 0.3; Lymphocytes % 30.9; MCHC 33.4 % (32.0-36.0); MCV 90 fL (80-95); MPV 10.1 fL (8.0-11.0); Monocytes % 5.6; Neutrophils % 61.4; Platelet Count 228 10^3/uL (130-400); RDW-SD 39.8 fL; WBC 7.55 10^3/uL (4.4-10.8)
[2023-07-15 19:14] LABS: ALT 64 U/L (14-59); AST 28 U/L (15-37); Albumin 3.5 g/dL (3.4-5.0); Alkaline Phosphatase 139 U/L (46-116); Anion Gap 9.3 mmol/L (3-11); BUN 18 mg/dL (7-18); Bilirubin, Total 0.3 mg/dL (0.2-1.0); CO2 25.7 mmol/L (21.0-32.0); CREATININE 0.6 mg/dL (0.55-1.02); Calcium 8.7 mg/dL (8.5-10.1); Chloride 106 mmol/L (98-107); Estimated GFR 113.44 (mL/min/1.73m2); FREE T4 0.99 ng/dL (0.76-1.46); Glucose 95 mg/dL (74-106); Potassium 3.7 mmol/L (3.5-5.1); Sodium 141 mmol/L (136-145); TSH 0.98 uIU/Ml (0.36-3.74); Total Protein 6.8 g/dL (6.4-8.2)
[2023-07-15 19:27] LABS: Calculated LDL 78 mg/dL (<100); Cholesterol 192 mg/dL (<200); HDL Cholesterol 40 mg/dL (40-60); Triglyceride 374 mg/dL (<150)
== END 2023-07-15 15:51 | disposition home or self-care (01) ==
LOC: NCHCN 15:50
PROVIDERS: Referring Provider Nurse Practitioner Family; Visit Provider Nurse Practitioner Family
DX: R00.2 Palpitations (principal); Z86.39 Personal history of other endocrine, nutritional and metabolic disease; Z13.220 Encounter for screening for lipoid disorders
CPT/HCPCS: 80053; 80061; 84439; 84443; 85025

== ENCOUNTER 2024-08-18 16:52 | Outpatient (REF) | payer BC, SELFPAY | END 2024-08-18 16:53 | disposition home or self-care (01) | LOC: LBN 16:52 | PROVIDERS: Visit Provider Physician Assistant Medical | DX: J02.9 Acute pharyngitis, unspecified (principal) | CPT/HCPCS: 80048; 84443; 85025; 87070 ==

== ENCOUNTER 2024-09-22 15:51 | Outpatient (REF) | payer BC, SELFPAY ==
[2024-09-22 16:14] LABS: Anion Gap 8.1 mmol/L (3-11); BUN 11 mg/dL (7-18); CO2 26.9 mmol/L (21.0-32.0); CREATININE 0.7 mg/dL (0.55-1.02); Calcium 8.8 mg/dL (8.5-10.1); Chloride 107 mmol/L (98-107); Estimated GFR 108.62 (mL/min/1.73m2); Glucose 146 mg/dL (74-106); Potassium 3.9 mmol/L (3.5-5.1); Sodium 142 mmol/L (136-145)
== END 2024-09-22 15:52 | disposition home or self-care (01) ==
LOC: NCHCN 15:51
PROVIDERS: Visit Provider Student in an Organized Health Care Education/Training Program
DX: I10 Essential (primary) hypertension (principal)
CPT/HCPCS: 80048

== ENCOUNTER 2024-11-18 17:42 | Outpatient (REF) | payer BC, SELFPAY ==
--- NOTE | 2024-11-18 15:00 | PAPFT_PTH ---
PATIENT: Malena Mustafa LOC: [facility] U#:[id number] AGE/SX: 44/F ROOM: RE11/18/[address]: Keshia Myers MD : [id number] BED: DIS: 11/18/2024 SPEC #: [id number] RECD: 11/18/24 17:50 STATUS: ANA REElias #: [id number] CARA: 11/18/24 15:[address]: Keshia Myers DEPT: [facility] Cytology RECD BY: Jane Tidwell ENTERED: 11/18/24 17:50 SP TYPE: PAPFT MANOJ DR: Macario Mason Tissues: 1 - CX/ENDOCX FOR PAP SMEARS Procedures: PAP THIN PREP/[facility] Screening HPV DNA PROBE Comments: [id number] (HPV 16 & 18/45)
== END 2024-11-18 17:43 | disposition home or self-care (01) ==
LOC: LBN 17:42
PROVIDERS: PCP Student in an Organized Health Care Education/Training Program; Visit Provider Obstetrics & Gynecology
DX: Z12.4 Encounter for screening for malignant neoplasm of cervix (principal)
CPT/HCPCS: 88142; 87624